=== PATIENT | male | born 1970 | race Caucasian/White ===

== ENCOUNTER 2020-01-10 12:21 | Emergency (ER) | payer OTHER ==
[~2020-01-10] VITALS: Ht 188 cm; Wt 108.9 kg
[~2020-01-10 12:21] MED LIST: DILANTIN100 MG; DILANTIN100 MG PO; ZITHROMAX250 MG NG
[2020-01-10] MEDS ORDERED: BACTRIM DS TAB1 EACH PO (13:14)
[2020-01-10] MEDS ORDERED: NORCO 5-325 TA1 EAC2 PO (13:14)
[2020-01-10 13:30] VITALS: BP 151/101
== END 2020-01-10 13:30 | disposition home or self-care (01) ==
LOC: M.ERS 12:21
DX: S61.551A Open bite of right wrist, initial encounter (principal); S41.151A Open bite of right upper arm, initial encounter; W54.0XXA Bitten by dog, initial encounter; Y93.89 Activity, other specified; Y92.89 Other specified places as the place of occurrence of the external cause; Y99.8 Other external cause status